=== PATIENT | male | born 1955 | race Caucasian/White ===

== ENCOUNTER 2018-08-23 20:49 | Inpatient (IN) | payer OTHER ==
[2018-08-23] MEDS ORDERED: SUCCINYLCHOLINE CHLORIDE 200 MG/10 ML SYR IVP ONE (21:10)
[2018-08-23] MEDS ORDERED: ROCURONIUM 100 MG/10 ML VIAL ONE (21:12)
[2018-08-23 21:26] LABS: INR 1.96 (0.83-1.16); PROTIME(PATIENT) 22.4 SEC (12.0-15.0)
--- NOTE | 2018-08-23 21:26 | EDPHY ---
H & P Time Seen by Provider: 08/23/18 20:50 Constitutional: Initial Vital Signs Temperature (C) 37.1 C 08/23/18 20:49 Heart Rate 110 H 08/23/18 20:49 Blood Pressure 110/64 08/23/18 20:49 O2 Sat (%) 90 L 08/23/18 20:49 O2 Delivery Mode Bag Valve Mask O2 (L/minute) 100 Allergies/Adverse Reactions: Unable to Assess Allergy (Unverified 08/23/18 21:04) Home Medications: Medication Instructions Recorded Unobtainable 08/23/18 Medical Decision Making - Diagnostics Imaging: I viewed and interpreted images myself - Diagnostics Imaging Results: Imaging Impressions Chest X-Ray 08/23/18 20:59 Impression: 1. ET tube tip in the right mainstem bronchus. This could be pulled back about 5 cm. 2. Poor inspiration with patchy bilateral infiltrates suspected. Consider pulmonary edema or atelectasis. ED Course/Re-evaluation: CHIEF COMPLAINT: Respiratory distress, unresponsive HISTORY OF PRESENT ILLNESS: This is a severely obese 63 y/o male who arrives with his son to triage unresponsive and gasping. Patient's son says, "he's been getting a ton of fluid lately" and has refused to seek care despite the urging of his family members. He's had worsening swelling over a period of weeks in his abdomen and legs and increased difficulty breathing for at least a week. Tonight they were able to convince him to come to the ED and assisted him into the vehicle. A few minutes into the drive his head rolled back and his breathing worsened. Upon arriving in triage, patient was unresponsive and gasping and was brought back to the ED emergently for assessment. No further history obtainable at this time. REVIEW OF SYSTEMS: Unobtainable. PHYSICAL EXAM: HR, BP, O2 Sat, RR. Temp noted General Appearance: Agonal respirations, gaping, unresponsive leaning backwards in wheelchair, morbidly obese Head: Atraumatic without scalp tenderness or obvious injury Eyes: No trauma, no injection. Nose: Atraumatic, no rhinorrhea, clear. Throat: Mucus membranes moist. Neck: Thick, obese neck. Respiratory: Gasping, agonal respirations. Cardiovascular: Regular rate and rhythm. Femoral pulses intact. Gastrointestinal: Severely obese distended abdomen. Musculoskeletal: Atraumatic. Neurological: Unresponsive. Skin: No rashes, atraumatic. PAST MEDICAL HISTORY: Unknown PAST SURGICAL HISTORY: Unknown SOCIAL HISTORY: . Son brought him. Chewing tobacco x 40yrs. DIAGNOSTICS/PROCEDURES/CRITICAL CARE TIME: The 12 lead EKG was interpreted by myself. Sinus mechanism, no ischemia. See hard copy and/or "tracemaster" electronic copy for interpretation. Chest x-ray: Right mainstem tube RSI attempt unsuccessful. Cricothyrotomy tube and subsequently tracheostomy tube placed. Due to severe obesity and thickness of his neck, the cricothyrotomy tube wasn't long enough and necessitated conversion to a tracheostomy. We only had an uncuffed trach tube available at the time and will switch to secured cuffed trach tube as soon as it is available. Procedure: Rapid sequence intubation. Indication for the procedure was airway protection and respiratory failure. The patient was preoxygenated with 100% oxygen by BV. The patient was given the following IV medications: 200mg IV Ketamine and 150mg IV succinylcholine. Oral endotracheally intubation attempted under direct visualization with an 8.5 ETT and subsequently attempted with several other tube sizes and Bougie. The trachea was well-visualized, but tube was unable to be passed through the cords due to resistance. Suspect nonvisible mass obstructing airway also likely contributing cause to initial respiratory distress. The procedure was unsuccessful. The procedure was performed by myself, Dr. Painting. Procedure: Cricothyrotomy, tracheostomy Indication for the procedure was airway protection, respiratory failure, unable to pass ETT. The patient was preoxygenated with 100% oxygen by BV. Thyroid cartilage located via palpation. Cricothyrotomy needle placed through cricothyroid membrane and wire passed into trachea. 2cm incision made with scalpel and tracheal cartilage palpated. Tube placed through hole. Due to severe obesity and thickness of patient's neck, tube was not long enough and necessitated emergent conversion to tracheostomy. Uncuffed size 6 trach tube placed as we had no cuffed tubes available. Difficulty securing this tube due to the above. Will replace with cuffed tube when available. Chest X-ray shows ETT in right mainstem bronchus and will require adjustment. The procedure was performed by myself, Dr. Painting Critical care time spent by me, Dr. Painting, exclusively with this patient was 70 minutes, exclusive of PA time and exclusive of procedures. The organ system at risk was cardiopulmonary. Time spent in emergent assessment and serial assessments of the patient, discussion with patient's family, consideration of interventions, anesthesia consultation, and review of imaging and labs. DIFFERENTIAL DIAGNOSIS: The differential diagnosis for the patient's respiratory distress and hypoxemia included but was not limited to pneumonia, myocardial infarction, acute mountain sickness, high altitude pulmonary edema, congestive heart failure, and pulmonary embolus. MEDICAL DECISION MAKIN: Patient brought back to ED emergently from triage. Gasping, unresponsive. 82% SpO2 on 15LPM, HR 102. Patient is not maintaining his airway. Breathing is irregular and stridorous. Suspect possible airway obstruction or other respiratory etiology for his symptoms. Preparing to intubate. EKG and IVs in progress. 2056: SpO2 improved to 95% with passive BVM. 2056: RSI attempt. 200mg IV Ketamine and 150mg succinylcholine administered for sedation. RSI was unsuccessful despite multiple attempts with different sized tubes and use of Bougie. Cords were well-visualized, but continued to meet resistance with each attempt to pass tube through cords. Will re-oxygenate then attempt with bronchoscope. 2104: Unsuccessful with bronchoscope. Will need to attempt cricothyrotomy. BVM in interim. 2106: Cricothyrotomy initiated. 2107: Dr. Joshi, anaesthesia at bedside. Needle cric is in trachea with wire passed through mouth. Will attempt Sellinger technique to pass tube over wire into trachea. 2108: 150mg IV Succinylcholine administered for continuing sedation. 2110: Continuing to have difficulty pass tube through vocal cords despite use of wire. BVM again to bring up SpO2. Anaesthesia will attempt to pass tube again. 2114: Anaesthesia unable to pass tube. Will proceed with cricothyrotomy. 2115: Pulse lost during procedure. CPR initiated, 1mg epinephrine administered. 2116: Bradycardia of 42 on monitor without palpable pulse. Tube in trachea but not secured. Resistance with ventilation. 2118: Size 6 uncuffed trach tube placed, unable to seal it. CPR paused, palpable pulse present. Runner sent to OR for cuffed tube. 2119: Pulse lost. CPR initiated 1mg epinephrine administered. 2120: CPR paused to secure tube. 2121: Faint pulse present at rate of 90, matching monitor. SpO2 increasing, 56% . Additional 1mg IV epinephrine ordered. 2122: HR 153, BP 90/53, SpO2 90%. POC troponin negative. Suspect primary respiratory cause in addition to upper airway obstruction causing intubation difficulty. 2124: Pulse continues to be present. HR 165. SpO2 100%. Tech will continuous manual pulse monitoring. Cric tube is 16 at the neck. Chest x-ray in progress. Propofol ordered for continuing for sedation, will titrate and back off if BP drops. Spoke with hospitalist service. Dr. Varela accepts admission. Patient will be admitted to ICU. 2134: Spoke with patient's son and to update them on patient condition. Son reports the patient has been "breathing terribly all week" with a "raspy crackly voice" and says they have been trying to get him to go into the doctor all week. He also reports the patient has used chewing tobacco daily for the last 40 years. 2141: Reviewed chest x-ray. Tube is in the right mainstem, will need to back out at least 3cm. Additional 1mg IV epinephrine ordered. BP 99/75. Levophed drip ordered to maintain BP. 2154: Trach replaced with Dr. Dowell's assistance. 2200: Pulse lost. CPR initiated. 2201: CPR paused. Pulse now present. Patient care turned over to Dr. Dowell pending admission to the ICU. 2235: Dr. Dowell placed an OG tube and secured ETT with sutures. Subsequent chest x-ray reviewed by Dr. Dowell. Right lung is partially collapsed. ETT in good position. (Ivan Painting) 2329: Central line procedure Procedure: Central line placement. Unltrasound Guided. Indication: Hypotension, Need for better IV access, Need for VasoPRessors Verbal informed consent was obtained, with the risks explained to include but not be limited to bleeding, infection, and collapsed lung. A timeout was observed and patients identity and correct procedure location confirmed. Full maximal sterile barrier technique was uses including cap, gown, sterile gloves, large sheet, hand washing and chlorhexidine prep. The area anesthetized with 1 % lidocaine. The RIGHT IJ was punctured with a 19 gauge finder needle, then a Triple Lumen Cath was placed using standard Seldinger technique. There were no complications. Blood return low pressure, dark blood. Patient tolerated procedure well. CXR results: Chest x-ray reviewed, endotracheal tube in the neck is in appropriate position above the kiya. Both lungs are inflated. Right IJ central line appears in good position. No pneumothorax.. X-ray was interpreted by myself. The procedure was performed by myself. Patient is in critical condition. Persistent hypotension despite IV fluid resuscitation, and vasopressor support. The patient be given broad-spectrum antibiotics IV vancomycin and IV Zosyn into we have a clear etiology of his respiratory failure.. CT scans reviewed. Please see full reports from Dr. Maher. CT scan head without contrast negative for bleed CT cervical spine negative for fracture CT chest abdomen pelvis shows atelectasis bilaterally, bilateral pleural effusions, cardiomegaly, liver cirrhosis with hepatic cyst, moderate amount of ascites, intra-abdominal free air, and metallic object in the right posterior lung base. Possible dental filling. Given the free air seen on the CT abdomen pelvis I will consult surgery. 1252am: I did consult General surgery Dr. Diop. No indication at this time for emergent surgery. The patient is in shock, INR of 2, large volume ascites, respiratory failure with severe hypotension. Blood pressure 60/40. He is on 2 vasopressors. Emergent echo ordered for possible heart failure. Unclear etiology of shock at this time. The patient has had 4 L of fluid. Levophed is at 10, vasopressin at 0.04. And I will add dobutamine. 0111: Updated family at bedside of the patient's condition. The patient is in shock. He is maxed out on Levophed, vasopressin, dopamine, dobutamine, has had fluid resuscitation of [address] scans reveal liver cirrhosis, large amount volume ascites, intra-abdominal free air. The patient here with respiratory failure, shock, persistent hypotension despite fluid resuscitation and vasopressor support, severe hypoxia despite ventilation With The family ( and son) after long discussion about his test results and care in the emergency room has elected to make him comfort care. We discussed, his labs, ct, results, information services assistant hypotension, hypoxia, ascites, respiratory failure, intra-abdominal free air, pleural effusions, atelectasis, severe anasarca. Long discussion with and son. They would like to make comfort care. The patient will transition to the intensive care unit and be made comfortable at the patient's family's request. Hospitalist service updated. Dr Berkowitz. Critical Care: Total Critical Care Time Spent Managing this Patient: 120 Minutes. This time was spent Exclusively with this patient. This Care was exclusive of procedures. The Organ System/life at risk was multiorgan system failure. Respiratory failure This Patient was in Critical Condition because multiorgan system failure respiratory failure, large volume ascites, persistent hypoxic, persistent hypotension, shock (DirkDaeros,Ben) - Data Points Laboratory Results: Laboratory Results 08/23/18 20:58 08/23/18 20:58 08/23/18 08/23/18 08/23/18 21:08 21:02 21:00 WBC RBC Hgb POC Hgb 12.9 gm/dL L gm/dL (13.7-17.5) Hct POC Hct 38 % L % (40-51) MCV MCH MCHC RDW Plt Count MPV Neut % (Auto) Lymph % (Auto) [place] % (Auto) Eos % (Auto) Baso % (Auto) Nucleat RBC Rel Count Absolute Neuts (auto) Absolute Lymphs (auto) Absolute Monos (auto) Absolute Eos (auto) Absolute Basos (auto) Absolute Nucleated RBC Immature Gran % Immature Gran # Platelet Estimate Polychromasia Hypochromasia Microcytic Cells Oval Macrocytes Echinocytes PT INR APTT VBG Lactic Acid POC Sodium 134 mEq/L L mEq/L (135-145) Sodium POC Potassium 4.5 mEq/L mEq/L (3.3-5.0) Potassium POC Chloride 93 mEq/L L mEq/L (97-110) Chloride Carbon Dioxide Anion Gap POC BUN 38 mg/dL H mg/dL (7-23) BUN Creatinine POC Creatinine 1.1 mg/dL mg/dL (0.7-1.3) Estimated GFR Glucose POC Glucose 141 mg/dL H mg/dL (70-100) Calcium Total Bilirubin 4.0 mg/dL H mg/dL (0.1-1.4) Conjugated Bilirubin 1.7 mg/dL H mg/dL (0.0-0.5) Unconjugated Bilirubin 2.3 mg/dL H mg/dL (0.0-1.1) AST 47 IU/L IU/L (17-59) ALT 37 IU/L IU/L (21-72) Alkaline Phosphatase 90 IU/L IU/L (38-126) POC Troponin I 0.05 ng/mL ng/mL (0.00-0.08) NT-Pro-B Natriuret Pep Total Protein 6.8 g/dL g/dL (6.3-8.2) Albumin 3.2 g/dL L g/dL (3.5-5.0) Ethyl Alcohol 08/23/18 08/23/18 08/23/18 20:58 20:58 20:58 WBC RBC Hgb POC Hgb Hct POC Hct MCV MCH MCHC RDW Plt Count MPV Neut % (Auto) Lymph % (Auto) [place] % (Auto) Eos % (Auto) Baso % (Auto) Nucleat RBC Rel Count Absolute Neuts (auto) Absolute Lymphs (auto) Absolute Monos (auto) Absolute Eos (auto) Absolute Basos (auto) Absolute Nucleated RBC Immature Gran % Immature Gran # Platelet Estimate Polychromasia Hypochromasia Microcytic Cells Oval Macrocytes Echinocytes PT 22.4 SEC H SEC (12.0-15.0) INR 1.96 H (0.83-1.16) APTT 34.0 SEC SEC (23.0-38.0) VBG Lactic Acid 7.3 mmol/L H mmol/L (0.7-2.1) POC Sodium Sodium POC Potassium Potassium POC Chloride Chloride Carbon Dioxide Anion Gap POC BUN BUN Creatinine POC Creatinine Estimated GFR Glucose POC Glucose Calcium Total Bilirubin Conjugated Bilirubin Unconjugated Bilirubin AST ALT Alkaline Phosphatase POC Troponin I NT-Pro-B Natriuret Pep 4130 pg/mL H pg/mL (0-125) Total Protein Albumin Ethyl Alcohol 08/23/18 08/23/18 20:58 20:58 WBC 5.70 10^3/uL 10^3/uL (3.80-9.50) RBC 4.00 10^6/uL L 10^6/uL (4.40-6.38) Hgb 9.4 g/dL L g/dL (13.7-17.5) POC Hgb Hct 35.8 % L % (40.0-51.0) POC Hct MCV 89.5 fL fL (81.5-99.8) MCH 23.5 pg L pg (27.9-34.1) MCHC 26.3 g/dL L g/dL (32.4-36.7) RDW 25.2 % H % (11.5-15.2) Plt Count 174 10^3/uL 10^3/uL (150-400) MPV 11.8 fL H fL (8.7-11.7) Neut % (Auto) 55.0 % % (39.3-74.2) Lymph % (Auto) 31.8 % % (15.0-45.0) [place] % (Auto) 12.8 % % (4.5-13.0) Eos % (Auto) 0.0 % L % (0.6-7.6) Baso % (Auto) 0.2 % L % (0.3-1.7) Nucleat RBC Rel Count 4.0 % H % (0.0-0.2) Absolute Neuts (auto) 3.14 10^3/uL 10^3/uL (1.70-6.50) Absolute Lymphs (auto) 1.81 10^3/uL 10^3/uL (1.00-3.00) Absolute Monos (auto) 0.73 10^3/uL 10^3/uL (0.30-0.80) Absolute Eos (auto) 0.00 10^3/uL L 10^3/uL (0.03-0.40) Absolute Basos (auto) 0.01 10^3/uL L 10^3/uL (0.02-0.10) Absolute Nucleated RBC 0.23 10^3/uL H 10^3/uL (0-0.01) Immature Gran % 0.2 % % (0.0-1.1) Immature Gran # 0.01 10^3/uL 10^3/uL (0.00-0.10) Platelet Estimate ADEQUATE (ADEQ) Polychromasia 1+ H Hypochromasia 2+ H Microcytic Cells 1+ H Oval Macrocytes 1+ H Echinocytes 1+ H PT INR APTT VBG Lactic Acid POC Sodium Sodium 133 mEq/L L mEq/L (135-145) POC Potassium Potassium 4.7 mEq/L mEq/L (3.3-5.0) POC Chloride Chloride 94 mEq/L L mEq/L (97-110) Carbon Dioxide 24 mEq/l mEq/l (22-31) Anion Gap 15 mEq/L H mEq/L (6-14) POC BUN BUN 39 mg/dL H mg/dL (7-23) Creatinine 1.1 mg/dL mg/dL (0.7-1.3) POC Creatinine Estimated GFR > 60 Glucose 140 mg/dL H mg/dL (70-100) POC Glucose Calcium 8.7 mg/dL mg/dL (8.5-10.4) Total Bilirubin Conjugated Bilirubin Unconjugated Bilirubin AST ALT Alkaline Phosphatase POC Troponin I NT-Pro-B Natriuret Pep Total Protein Albumin Ethyl Alcohol < 10 mg/dL mg/dL (0-10) Medications Given: Discontinued Medications Epinephrine HCl (Epinephrine) 4 mg IVP ONCE ONE Stop: 08/23/18 23:10 Last Admin: 08/23/18 23:10 Dose: 4 mg Propofol (Diprivan 10 Mg/Ml (Premix)) 100 mls @ 0 mls/hr IV CONT ERICA; Titrate PRN Reason: Protocol Stop: 02/19/19 21:59 Last Admin: 08/23/18 21:59 Dose: 100 mls Norepinephrine 4 mg/ Sodium (Chloride) 504 mls @ 0 mls/hr IV EDNOW ONE; Per Protocol PRN Reason: Protocol Stop: 08/23/18 22:01 Last Admin: 08/23/18 21:58 Dose: 504 mls Ketamine HCl 100 mg/ Syringe 2 mls @ 120 mls/hr IVP ONCE ONE Stop: 08/23/18 22:21 Last Admin: 08/23/18 23:03 Dose: 2 mls Vasopressin 25 unit/ Sodium (Chloride) 251.25 mls @ 24 mls/hr IV EDNOW ONE Stop: 08/24/18 09:43 Last Admin: 08/23/18 23:50 Dose: 251.25 mls Vancomycin/Sodium Chloride (Vancomycin 1 Gm (Premix)) 250 mls @ 250 mls/hr IV EDNOW ONE PRN Reason: Protocol Stop: 08/24/18 01:08 Last Admin: 08/24/18 00:56 Dose: 250 mls Piperacillin/Tazobactam/Dextrose (Zosyn (Premix)) 100 mls @ 200 mls/hr IV EDNOW ONE PRN Reason: Protocol Stop: 08/24/18 00:38 Last Admin: 08/24/18 00:57 Dose: 100 mls Point of Care Test Results: Chemistry 08/23/18 08/23/18 21:02 21:00 POC Sodium 134 mEq/L L mEq/L (135-145) POC Potassium 4.5 mEq/L mEq/L (3.3-5.0) POC Chloride 93 mEq/L L mEq/L (97-110) POC BUN 38 mg/dL H mg/dL (7-23) POC Creatinine 1.1 mg/dL mg/dL (0.7-1.3) POC Glucose 141 mg/dL H mg/dL (70-100) POC Troponin I 0.05 ng/mL ng/mL (0.00-0.08) ISTAT H&H 08/23/18 21:02 POC Hgb 12.9 gm/dL L gm/dL (13.7-17.5) POC Hct 38 % L % (40-51) Departure - Departure Disposition: [facility] Inpatient Acute Clinical Impression: Respiratory arrest, Airway obstruction Condition: Critical Report Scribed for: Ivan Painting Report Scribed by: Sandra Skaggs Date of Report: 08/23/18 Time of Report: 22:48
[2018-08-23] MEDS ORDERED: PROPOFOL/EMULSION 1,000 MG/100 ML BOTTLE IV ONE (21:34)
[2018-08-23] MEDS ORDERED: NOREPINEPHRINE BITARTRATE 16 MG in NS 250 ML IV SCH (22:00)
[2018-08-23] MEDS ORDERED: fentaNYL/NACL 100 ML IV SCH (22:00)
[2018-08-23] MEDS ORDERED: NOREPINEPHRINE BITARTRATE 4 MG in NS 500 ML IV ONE (22:00)
[2018-08-23] MEDS ORDERED: PROPOFOL/EMULSION 100 ML IV SCH (22:00)
[2018-08-23] MEDS ORDERED: KETAMINE 500 MG/10 ML VIAL ONE (22:19)
[2018-08-23] MEDS ORDERED: KETAMINE IVP ONE (22:20)
[2018-08-23] MEDS ORDERED: IOPAMIDOL (ISOVUE-300) 100 ML BTL ONE ×2 (22:28→23:32)
[2018-08-23 22:35] LABS: PLATELET COUNT 174 10^3/uL (150-400)
[2018-08-23] MEDS ORDERED: EPINEPHrine 1 MG/10 ML SYR IVP ONE (23:09)
[2018-08-23] MEDS ORDERED: VASOPRESSIN 25 UNIT in NS 250 ML IV ONE (23:15)
[2018-08-24] MEDS ORDERED: ONDANSETRON DISINTEGRATING 4 MG TAB PO PRN (00:01)
[2018-08-24] MEDS ORDERED: ONDANSETRON 4 MG/2 ML VIAL IVP PRN (00:01)
[2018-08-24] MEDS ORDERED: ACETAMINOPHEN 325 MG TAB PO PRN (00:01)
[2018-08-24] MEDS ORDERED: PIPERACILLIN/TAZO 4.5 GM/DEX 100 ML IV ONE (00:09)
[2018-08-24] MEDS ORDERED: VANCOMYCIN HCL/NORMAL SALINE 250 ML IV ONE (00:09)
[2018-08-24] MEDS ORDERED: VASOPRESSIN 25 UNIT in NS 250 ML IV SCH (00:15)
[2018-08-24] MEDS ORDERED: IOPAMIDOL (ISOVUE-300) 100 ML BTL ONE (00:26)
[2018-08-24] MEDS ORDERED: NOREPINEPHRINE BITARTRATE 4 MG in NS 500 ML IV SCH (00:30)
[2018-08-24] MEDS ORDERED: PROPOFOL/EMULSION 100 ML IV SCH (00:30)
[2018-08-24] MEDS ORDERED: fentaNYL/NACL 100 ML IV SCH (00:30)
[2018-08-24] MEDS ORDERED: ROCURONIUM 100 MG/10 ML VIAL ONE (00:47)
[2018-08-24] MEDS ORDERED: SUCCINYLCHOLINE CHLORIDE 200 MG/10 ML SYR IVP ONE (00:47)
[2018-08-24] MEDS ORDERED: KETAMINE 200 MG/20 ML VIAL ONE (00:47)
[2018-08-24] MEDS ORDERED: DOBUTamine/DEXTROSE 250 ML IV ONE (01:00)
[2018-08-24] MEDS ORDERED: DOPamine/DEXTROSE 400 MG/250 ML BAG IV ONE (01:02)
[2018-08-24 01:07] LABS: PLATELET COUNT 159 10^3/uL (150-400)
[2018-08-24 01:57] VITALS: BP 116/85
[2018-08-24] MEDS ORDERED: LORazepam 2 MG/ML INJ IVP PRN (02:26)
[2018-08-24] MEDS ORDERED: ATROPINE 1% 5 ML OPHT.BTL SL PRN (02:26)
[2018-08-24] MEDS ORDERED: GLYCOPYRROLATE 0.2 MG/1 ML VIAL IVP/IM PRN (02:26)
--- NOTE | 2018-08-24 03:27 | PDGENHP ---
History and Physical - Chief Complaint Shortness of breath - History of Present Illness 63 yo M w/ unknown PMHx presented with respiratory distress. He required intubation, which proved challenging. After several providers attempted without success a tracheostomy was performed. Despite successful tracheostomy his oxygenation remained marginal despite maximum ventilatory support. In addition, he developed significant shock of unclear etiology requiring multiple vasopressors for hemodynamic support. Work-up revealed evidence of severe multi- organ failure. It appears the patient has cirrhosis per imaging; he has been oliguric despite aggressive hydration, and is likely in heart failure as well. Free air was also noted on his abdominal CT scan, and his abdomen is distended and firm. I had a discussion with the family about the severity of illness, his poor prognosis, and goals of care. It seems the patient was wary of medical care and rarely went to the doctor. They felt he would not want aggressive measures undertaken especially if the chance of meaningful recovery was low. As a result, his , the chief surrogate decision maker, decided to withdraw aggressive measures. Shortly after discontinuation of ventilatory and vasopressor support, the patient . His and son were at bedside at the time of . History Information - Allergies/Home Medication List Allergies/Adverse Reactions: Unable to Assess Allergy (Unverified 08/23/18 21:04) Home Medications: Unobtainable 08/23/18 [Last Taken Unknown] I have personally reviewed and updated: family history, medical history - Past Medical History Additional medical history: Cirrhosis - Surgical History Additional surgical history: Unable to obtain due to mental status - Family History Additional family history: Unable to obtain due to mental status - Social History Smoking Status: Unknown if ever smoked Review of Systems Review of Systems: Unable to obtain due to mental status Physical Exam Physical Exam: Temp Pulse Resp BP Pulse Ox 37.1 C 112 H 20 116/85 H 89 L 08/23/18 22:48 08/24/18 01:55 08/24/18 01:55 08/24/18 01:55 08/24/18 01:55 O2 (L/minute) 100 Constitutional: chronically ill appearing, obese, other (Intubated, sedated) Eyes: PERRL, icteric sclera Ears, Nose, Mouth, Throat: no oral mucosal ulcers, dry mucous membranes Cardiovascular: regular rate and rhythym, systolic murmur Respiratory: inspiratory crackles, respiratory distress, other (Mechanical BS, tracheostomy in place) Gastrointestinal: ascites, distension (Distended, firm abdomen) Skin: mottled, no induration Neurologic: other (Intubated, sedated), No facial droop Psychiatric: encephalopathic, other (Sedated) Lab Data & Imaging Review 08/24/18 00:50 08/23/18 20:58 WBC 3.63 10^3/uL (3.80-9.50) L 08/24/18 00:50 RBC 3.42 10^6/uL (4.40-6.38) L 08/24/18 00:50 Hgb 7.9 g/dL (13.7-17.5) L 08/24/18 00:50 POC Hgb 12.9 gm/dL (13.7-17.5) L 08/23/18 21:02 Hct 29.9 % (40.0-51.0) L 08/24/18 00:50 POC Hct 38 % (40-51) L 08/23/18 21:02 MCV 87.4 fL (81.5-99.8) 08/24/18 00:50 MCH 23.1 pg (27.9-34.1) L 08/24/18 00:50 MCHC 26.4 g/dL (32.4-36.7) L 08/24/18 00:50 RDW 24.6 % (11.5-15.2) H 08/24/18 00:50 Plt Count 159 10^3/uL (150-400) 08/24/18 00:50 MPV 11.7 fL (8.7-11.7) 08/24/18 00:50 Neut % (Auto) 68.9 % (39.3-74.2) 08/24/18 00:50 Lymph % (Auto) 15.4 % (15.0-45.0) 08/24/18 00:50 Stark % (Auto) 15.4 % (4.5-13.0) H 08/24/18 00:50 Eos % (Auto) 0.0 % (0.6-7.6) L 08/24/18 00:50 Baso % (Auto) 0.0 % (0.3-1.7) L 08/24/18 00:50 Nucleat RBC Rel Count 9.6 % (0.0-0.2) H 08/24/18 00:50 Absolute Neuts (auto) 2.50 10^3/uL (1.70-6.50) 08/24/18 00:50 Absolute Lymphs (auto) 0.56 10^3/uL (1.00-3.00) L 08/24/18 00:50 Absolute Monos (auto) 0.56 10^3/uL (0.30-0.80) 08/24/18 00:50 Absolute Eos (auto) 0.00 10^3/uL (0.03-0.40) L 08/24/18 00:50 Absolute Basos (auto) 0.00 10^3/uL (0.02-0.10) L 08/24/18 00:50 Absolute Nucleated RBC 0.35 10^3/uL (0-0.01) H 08/24/18 00:50 Immature Gran % 0.3 % (0.0-1.1) 08/24/18 00:50 Immature Gran # 0.01 10^3/uL (0.00-0.10) 08/24/18 00:50 RBC/WBC/PLT Morphology TNP 08/24/18 00:50 Platelet Estimate ADEQUATE (ADEQ) 08/24/18 00:50 Polychromasia 1+ H 08/24/18 00:50 Hypochromasia 1+ H 08/24/18 00:50 Microcytic Cells 1+ H 08/24/18 00:50 Oval Macrocytes 1+ H 08/23/18 20:58 Echinocytes 1+ H 08/23/18 20:58 PT 22.4 SEC (12.0-15.0) H 08/23/18 20:58 INR 1.96 (0.83-1.16) H 08/23/18 20:58 APTT 34.0 SEC (23.0-38.0) 08/23/18 20:58 Puncture Site RIGHT BRACHIAL 08/23/18 22:44 Patient Temperature 37.0 DEGREES 08/23/18 22:44 pCO2 51 mmHg (34-38) H 08/23/18 22:44 pO2 60 mmHg (65-75) L 08/23/18 22:44 Total CO2 23 mEq/L (23-27) 08/23/18 22:44 ABG pH 7.25 (7.35-7.45) L 08/23/18 22:44 ABG PO2/FiO2 Ratio 60 RATIO 08/23/18 22:44 ABG HCO3 21 mEq/L (22-26) L 08/23/18 22:44 ABG O2 Saturation 80 % (92-95) L 08/23/18 22:44 ABG Base Excess -5.3 mEq/L (-2.5-2.5) L 08/23/18 22:44 VBG Lactic Acid 4.5 mmol/L (0.7-2.1) H 08/23/18 23:36 O2 Concentration % 100 % (0-100) 08/23/18 22:44 Respiration Rate 16 08/23/18 22:44 Set Respiration Rate 16 08/23/18 22:44 Assist Control YES 08/23/18 22:44 Tidal Volume 600 08/23/18 22:44 End Tidal CO2 30 08/23/18 22:44 PEEP 10 08/23/18 22:44 POC Sodium 134 mEq/L (135-145) L 08/23/18 21:02 Sodium 133 mEq/L (135-145) L 08/23/18 20:58 POC Potassium 4.5 mEq/L (3.3-5.0) 08/23/18 21:02 Potassium 4.7 mEq/L (3.3-5.0) 08/23/18 20:58 POC Chloride 93 mEq/L (97-110) L 08/23/18 21:02 Chloride 94 mEq/L (97-110) L 08/23/18 20:58 Carbon Dioxide 24 mEq/l (22-31) 08/23/18 20:58 Anion Gap 15 mEq/L (6-14) H 08/23/18 20:58 POC BUN 38 mg/dL (7-23) H 08/23/18 21:02 BUN 39 mg/dL (7-23) H 08/23/18 20:58 Creatinine 1.1 mg/dL (0.7-1.3) 08/23/18 20:58 POC Creatinine 1.1 mg/dL (0.7-1.3) 08/23/18 21:02 Estimated GFR > 60 08/23/18 20:58 Glucose 140 mg/dL (70-100) H 08/23/18 20:58 POC Glucose 141 mg/dL (70-100) H 08/23/18 21:02 Calcium 8.7 mg/dL (8.5-10.4) 08/23/18 20:58 Total Bilirubin 4.0 mg/dL (0.1-1.4) H 08/23/18 21:08 Conjugated Bilirubin 1.7 mg/dL (0.0-0.5) H 08/23/18 21:08 Unconjugated Bilirubin 2.3 mg/dL (0.0-1.1) H 08/23/18 21:08 AST 47 IU/L (17-59) 08/23/18 21:08 ALT 37 IU/L (21-72) 08/23/18 21:08 Alkaline Phosphatase 90 IU/L (38-126) 08/23/18 21:08 POC Troponin I 0.05 ng/mL (0.00-0.08) 08/23/18 21:00 NT-Pro-B Natriuret Pep 4130 pg/mL (0-125) H 08/23/18 20:58 Total Protein 6.8 g/dL (6.3-8.2) 08/23/18 21:08 Albumin 3.2 g/dL (3.5-5.0) L 08/23/18 21:08 Urine Opiates Screen NEGATIVE (NEGATIVE) 08/24/18 00:20 Urine Barbiturates NEGATIVE (NEGATIVE) 08/24/18 00:20 Ur Phencyclidine Scrn NEGATIVE (NEGATIVE) 08/24/18 00:20 Ur Amphetamine Screen NEGATIVE (NEGATIVE) 08/24/18 00:20 U Benzodiazepines Scrn NEGATIVE (NEGATIVE) 08/24/18 00:20 Urine Cocaine Screen NEGATIVE (NEGATIVE) 08/24/18 00:20 U Marijuana (THC) Screen NEGATIVE (NEGATIVE) 08/24/18 00:20 Ethyl Alcohol < 10 mg/dL (0-10) 08/23/18 20:58 Imaging Review: Imaging Impressions Chest X-Ray 08/23/18 20:59 Impression: 1. ET tube tip in the right mainstem bronchus. This could be pulled back about 5 cm. 2. Poor inspiration with patchy bilateral infiltrates suspected. Consider pulmonary edema or atelectasis. Chest X-Ray 08/23/18 22:20 Impression: 1. ET tube tip in good position. 2. Radiopaque density projected in the right mainstem bronchus that could represent a tooth fragment. 3. Atelectasis right lower lobe has developed. 4. Moderate amount of soft tissue gas in the lower neck region. Abdomen CT 08/23/18 22:22 Impression: 1. Free air within the abdomen with moderate to large amount of ascites. 2. No CT evidence of appendicitis, abscess or bowel obstruction. 3. Diverticulosis of the colon without diverticulitis identified. Mildly thickened loops of mid small bowel without distention. Nonspecific but could be related to mild enteritis. 4. Numerous hypodensities in the liver probably representing cysts with lobulated contour suggestive of cirrhosis. 5. Mild splenomegaly. Findings discussed with Ben Dowell MD at 0:51 hour, 08/24/2018. Cervical Spine CT 08/23/18 23:29 Impression: 1. Normal CT cervical spine. 2. Percutaneous tracheostomy in place with fluid in the trachea above this entrance site as well as extending into the posterior nasopharynx. 3. No definitive mass identified. Consider correlation with laryngoscopy at some point. Findings discussed with Ben Dowell MD at 0:30 hour, 08/24/2018. Chest CT 08/23/18 23:29 Impression: 1. Atelectasis involving both lower lobes. 2. Metallic density right lower lobe bronchus posteriorly could represent metallic fragment from dental hardware and bronchus. 3. Gas in the soft tissues over the anterior upper chest extending into the neck related to tracheostomy. 4. Possible nondisplaced fracture anterior cortex of the sternum. Findings discussed with Ben Dowell MD at 0:41 hour, 08/24/2018. Head CT 08/23/18 23:29 Impression: 1. Mild atrophy. 2. No hemorrhage, mass effect, or definite acute peripheral infarct. 3. Air-fluid levels containing blood products are present within the maxillary and sphenoid sinuses with fluid in the posterior nasopharynx. 4. Gas is seen extending from the neck into the soft tissues lower face. If symptoms worsen, additional imaging may be necessary. These findings were discussed by telephone with Dr. Ben Dowell at 0029 hrs. Chest X-Ray 08/23/18 23:30 Impression: 1. Central line tip in the SVC above the right atrium. No pneumothorax. 2. Radiopaque foreign body projected in the right mainstem bronchus posteriorly related to aspirated tooth fragment. 3. Persistent atelectasis right lower lobe and increase in subsegmental atelectasis left base. Assessment & Plan Assessment: 63 yo M w/ unknown PMHx presented with respiratory distress and due to critical illness. Plan: 1. Shock, multi-organ failure - Patient presented in respiratory distress and severe multi-organ failure. Hypoxia, hypotension, and intra-abdominal process continued to worsen despite aggressive measures including tracheostomy and vasopressor support. After a goals of care discussion his family decided to withdraw aggressive measures. The patient shortly after.
--- NOTE | 2018-08-24 03:32 | PDDCSUM ---
Discharge Summary Discharge Summary: Patient shortly after admission, please see admission H&P for details.
[2018-08-24] MEDS ORDERED: PIPERACILLIN/TAZO 3.375 GM/DEX 50 ML IV SCH (06:00)
[2018-08-24] MEDS ORDERED: CHLORHEXIDINE GLUCONATE 15 ML UDL PO SCH (08:00)
[2018-08-24] MEDS ORDERED: ENOXAPARIN 40 MG/0.4 ML SYR SC SCH (09:00)
[2018-08-24] MEDS ORDERED: FAMOTIDINE 20 MG/NACL 50 ML IV SCH (09:00)
--- NOTE | 2018-08-24 09:10 | PDMN ---
Medical Necessity Medical necessity: MCG: GRG Resp failure: pt with acute resp failure, intubation not successful, tracheostomy performed, pt in shock with multi organ failure, pt
--- NOTE | 2018-09-01 14:17 | CPEKG ---
Test Reason : OPEN Blood Pressure : / mmHG Vent. Rate : 101 BPM Atrial Rate : 102 BPM P-R Int : 147 ms QRS Dur : 089 ms QT Int : 394 ms P-R-T Axes : 024 011 000 degrees QTc Int : 511 ms Sinus tachycardia Low voltage, extremity leads Nonspecific T abnormalities, lateral leads Prolonged QT interval Confirmed by Ivan Painting ([id number] on 09/01/2018 2:17:05 PM Referred By: Confirmed By:Ivan Painting
== END 2018-08-24 03:58 | disposition expired | DRG 4 ==
LOC: F2N 08-24 01:44
PROVIDERS: ADMIT Internal Medicine; ATTEND Internal Medicine
PROC: 5A1935Z Respiratory Ventilation, Less than 24 Consecutive Hours (ICD-10-PCS; principal; 2018-08-23)
PROC: 0B113F4 Bypass Trachea to Cutaneous with Tracheostomy Device, Percutaneous Approach (ICD-10-PCS; principal; 2018-08-23)
PROC: 02HV33Z Insertion of Infusion Device into Superior Vena Cava, Percutaneous Approach (ICD-10-PCS; 2018-08-23)
DX: R06.03 Acute respiratory distress (principal); R57.9 Shock, unspecified; R09.02 Hypoxemia
CPT/HCPCS: 80305; 82435-PO; 82565-PO; 82947-PO; 84132-PO; 84295-PO; 84484-PO; 84520-PO; 85014-PO; 96374; G0480; J0330; J1250; J1265; J2060; J2543; J2704; J3010; J3370; Q9967